=== PATIENT | male | born 1975 | race Two or more races ===

== ENCOUNTER 2019-09-16 20:25 | Emergency (ER) | payer OTHER ==
--- NOTE | 2019-09-16 21:04 | ER Document Report ---
ED Medical Screen (RME) - General Chief Complaint: Epigastric Pain Stated Complaint: EPIGASTRIC PAIN,DIARRHEA Time Seen by Provider: 09/16/19 20:59 - HPI Notes: 09/16/19 21:03 Patient is a 44-year-old male with a history of diverticulitis who presents complaint of left mid abdominal pain is been present for the past 6 days. He has had decreased appetite and intermittent nausea. He is still urinating normally and having normal bowel movements. Denies fever, chest pain, shortness of breath, vomiting. I have treated and performed a rapid initial assessment of this patient. A comprehensive ED assessment and evaluation of the patient, analysis of test results and completion of medical decision making process will be conducted by additional ED providers. PHYSICAL EXAMINATION: GENERAL: Well-appearing, well-nourished and in no acute distress. A&Ox4. Answers questions appropriately. Abdomen: Limited exam in triage, but abdomen is soft with noted tenderness to left mid abdomen. Physical Exam - Vital signs Vitals: Temp Pulse Resp BP Pulse Ox 98.0 F 65 14 110/72 98 09/16/19 20:56 09/16/19 20:56 09/16/19 20:56 09/16/19 20:56 09/16/19 20:56 Course - Vital Signs Vital signs: Temp Pulse Resp BP Pulse Ox 98.0 F 65 14 110/72 98 09/16/19 20:56 09/16/19 20:56 09/16/19 20:56 09/16/19 20:56 09/16/19 20:56
[2019-09-16 21:38] LABS: APPEARANCE,URINE SLIGHTLY-CLOUDY; BILIRUBIN,URINE NEGATIVE (NEGATIVE); COLOR,URINE DARK YELLOW; GLUCOSE, URINE NEGATIVE (NEGATIVE); KETONES,URINE 20 mg/dL (NEGATIVE); PROTEIN,URINE 30 mg/dL (NEGATIVE); URINE SPECIFIC GRAVITY 1.036
[2019-09-16 21:42] LABS: ABSOLUTE EOSINOPHILS # (AUTO) 0.2 10^3/uL (0.0-0.6); ABSOLUTE LYMPHOCYTES (AUTO) 2.3 10^3/uL (0.5-4.7); ABSOLUTE MONOCYTES (AUTO) 0.4 10^3/uL (0.1-1.4); ABSOLUTE NEUT (AUTO) 2.6 10^3/uL (1.7-8.2); BASOPHILS % (AUTO) 0.8 % (0-2); EOSINOPHILS % (AUTO) 3.9 % (0-6); HEMATOCRIT 41.9 % (37.9-51.0); HEMOGLOBIN 14.2 g/dL (13.5-17.0); LYMPHOCYTES % (AUTO) 41.3 % (13-45); MEAN CORPUSCULAR HEMOGLOBIN 30.5 pg (27.0-33.4); MEAN CORPUSCULAR HGB CONC 33.9 g/dL (32.0-36.0); MEAN CORPUSCULAR VOLUME 90 fl (80-97); MONOCYTES % (AUTO) 7.9 % (3-13); PLATELET COUNT 235 10^3/uL (150-450); RED BLOOD COUNT 4.67 10^6/uL (4.35-5.55); RED CELL DISTRIBUTION WIDTH 13.4 % (11.5-14.0); SEGMENTED NEUTROPHILS % (AUTO) 46.1 % (42-78); TOTAL CELLS COUNTED % (AUTO) 100 %; WHITE BLOOD COUNT 5.5 10^3/uL (4.0-10.5)
[2019-09-16 21:56] LABS: ALBUMIN 4.3 g/dL (3.5-5.0); ALKALINE PHOSPHATASE 54 U/L (38-126); ANION GAP 9 (5-19); ASPARTATE AMINO TRANSFERASE 27 U/L (17-59); BILIRUBIN,DIRECT 0.1 mg/dL (0.0-0.4); BILIRUBIN,TOTAL 0.6 mg/dL (0.2-1.3); BLOOD UREA NITROGEN 12 mg/dL (7-20); CALCIUM 9.4 mg/dL (8.4-10.2); CARBON DIOXIDE 30 mmol/L (22-30); CHLORIDE 101 mmol/L (98-107); GLUCOSE 94 mg/dL (75-110); POTASSIUM 3.8 mmol/L (3.6-5.0); TOTAL PROTEIN 7.4 g/dL (6.3-8.2)
--- NOTE | 2019-09-16 23:04 | ER Document Report ---
ED GI/ - General Chief Complaint: Abdominal Pain Stated Complaint: EPIGASTRIC PAIN,DIARRHEA Time Seen by Provider: 09/16/19 20:59 Mode of Arrival: Ambulatory Information source: Patient - HPI Patient complains to provider of: Abdominal pain, Vomiting Onset: Last week Timing/Duration: Gradual, Intermittent Quality of pain: Pressure Severity at maximum: Moderate Severity in ED: Mild Pain Level: 2 Context: Other - Family member with similar illness of GI tract viral illness. Location: LU, Q Associated symptoms: Constipation Relieved by: Food Similar symptoms previously: No Recently seen / treated by doctor: No Notes: 09/17/19 00:39 History of diverticulitis in the past. Patient denies any diarrhea or or any melena or any hematochezia. - Related Data Allergies/Adverse Reactions: Iodine and Iodide Containing Produc Allergy (Verified 09/16/19 22:54) Past Medical History - Social History Smoking Status: Never Smoker Frequency of alcohol use: Social Drug Abuse: None Lives with: Family Family History: None Patient has suicidal ideation: No Patient has homicidal ideation: No GI Medical History: Reports: Hx Diverticulitis Physical Exam - Vital signs Vitals: Temp Pulse Resp BP Pulse Ox 98.0 F 65 14 110/72 98 09/16/19 20:56 09/16/19 20:56 09/16/19 20:56 09/16/19 20:56 09/16/19 20:56 Interpretation: Normal - General General appearance: Appears well, Alert - HEENT Head: Normocephalic, Atraumatic Eyes: Normal Pupils: PERRL - Respiratory Respiratory status: No respiratory distress Chest status: Nontender Breath sounds: Normal Chest palpation: Normal - Cardiovascular Rhythm: Regular Heart sounds: Normal auscultation Murmur: No - Abdominal Inspection: Normal Distension: No distension Bowel sounds: Normal Tenderness: Nontender, Tender, Other - Tenderness noted in the left upper left lower quadrant abdominal area. No rebound no guarding. Organomegaly: No organomegaly - Back Back: Normal, Nontender - Extremities General upper extremity: Normal inspection, Nontender, Normal color, Normal ROM, Normal temperature General lower extremity: Normal inspection, Nontender, Normal color, Normal ROM, Normal temperature, Normal weight bearing. No: Rut's sign - Neurological Neuro grossly intact: Yes Cognition: Normal Orientation: AAOx4 [place] Coma Scale Eye Opening: Spontaneous [place] Coma Scale Verbal: Oriented [place] Coma Scale Motor: Obeys Commands [place] Coma Scale Total: 15 Speech: Normal Motor strength normal: LUE, RUE, LLE, RLE Sensory: Normal - Psychological Associated symptoms: Normal affect, Normal mood - Skin Skin Temperature: Warm Skin Moisture: Dry Skin Color: Normal Course - Re-evaluation Re-evalutation: 09/17/19 00:43 Patient resting comfortably in exam room not showing any signs of distress. Abdomen soft tenderness noted CT scan results showed no diverticulitis. Incid ental note was to small stones kidney stones in the right kidney nonobstructing. Also noted was moderate amount of stool. Patient admits to constipation. Advised patient to drink 1 bottle of magnesium citrate and and after 2 hours if no bowel movement to repeat second bottle of magnesium citrate. - Vital Signs Vital signs: Temp Pulse Resp BP Pulse Ox 98.0 F 65 14 110/72 98 09/16/19 20:56 09/16/19 20:56 09/16/19 20:56 09/16/19 20:56 09/16/19 20:56 - Laboratory Result Diagrams: 09/16/19 21:15 09/16/19 21:15 Laboratory results interpreted by me: 09/16/19 21:15 Urine Protein 30 H Urine Ketones 20 H Urine Urobilinogen 2.0 H - Diagnostic Test Radiology reviewed: Image reviewed, Reports reviewed Discharge - Discharge Clinical Impression: Abdominal pain, Constipation Condition: Stable Disposition: HOME, SELF-CARE Instructions: Abdominal Pain ([facility]), Bulk Laxatives Prescriptions: Magnesium Citrate 296 ml PO ONCE PRN 1 Days #2 solution PRN Reason:
--- NOTE | 2019-09-16 23:30 | RADIOLOGY REPORT (SQ) ---
EXAM DESCRIPTION: CT ABDOMEN PELVIS WITHOUT IV CONTRAST COMPLETED DATE/TME: 09/16/2019 21:02 CLINICAL HISTORY: 44 years, Male, Left abd pain COMPARISON: None. TECHNIQUE: 282 Images stored on PACS. All CT scanners at this facility use dose modulation, iterative reconstruction, and/or weight based dosing when appropriate to reduce radiation dose to as low as reasonably achievable (ALARA). [facility]: Dose Right [facility]: CareDose [facility]: Dose Right [facility]: Teradose 4D [facility]: [employer] LIMITATIONS: None. FINDINGS: Lung bases are unremarkable. Osseous structures are grossly intact. Limited evaluation of the liver, spleen, adrenal glands, pancreas is unremarkable. Status post cholecystectomy. Question punctate nonobstructing 1 to 2 mm right renal calculus. No obstructing calculus or hydronephrosis. Large amount stool in the colon. Normal appendix. No free air or free fluid. IMPRESSION: No acute intra-abdominal/pelvic process TECHNICAL DOCUMENTATION: Quality ID # [id number]: Final reports with documentation of one or more dose reduction techniques (e.g., Automated exposure control, adjustment of the mA and/or kV according to patient size, use of iterative reconstruction technique) copyright 2010 [employer]- All Rights Reserved
[2019-09-17 01:02] VITALS: BP 115/75
== END 2019-09-17 01:13 | disposition home or self-care (01) ==
LOC: ER 20:25
DX: K59.00 Constipation, unspecified (principal); R10.13 Epigastric pain; R10.12 Left upper quadrant pain; R10.32 Left lower quadrant pain; R11.10 Vomiting, unspecified; R19.7 Diarrhea, unspecified
CPT/HCPCS: 36415; 74176; 80053; 81001; 83690; 85025; 99284